=== PATIENT | female | born 1970 | race African-American/Black ===

== ENCOUNTER 2017-07-08 10:01 | Emergency (ER) | payer OTHER ==
[~2017-07-08] VITALS: Ht 162.6 cm; Wt 93.6 kg
[~2017-07-08 10:01] MED LIST: ALPRAZOLAM0.5 MG PO; ARIPIPRAZOLE10 MG PO; CYMBALTA60 MG; DULOXETINE HCL60 MG PO; FIORICET,ESG1 TABLET PO; FLEXERIL10 MG PO; MOTRIN800 MG PO; NAPROSYN500 MG PO; NAPROXEN500 M1 PO; NEURONTIN300 MG PO; NOHOMEMEDS; NORCO 5/3251 TABLET PO; PREDNISONE10 MG PO; SEROQUEL100 MG PO; SERTRALINE HCL100 MG PO; TEGRETOL200 MG PO; TOPAMAX50 MG PO; VIBRAMYCIN100 M2 PO; ZOLPIDEM TARTRA10 MG; ZOLPIDEM TARTRA10 MG PO; [UNRECOGNIZED DRUG - OTHER]
[2017-07-08] MEDS ORDERED: MOTRIN800 MG PO (11:31)
[2017-07-08] MEDS ORDERED: TESSALON PERLE100 MG PO (11:31)
[2017-07-08] MEDS ORDERED: FLEXERIL10 MG PO (11:31)
[2017-07-08 12:12] VITALS: BP 140/88
== END 2017-07-08 12:17 | disposition home or self-care (01) ==
LOC: EME 10:01
DX: M54.31 Sciatica, right side (principal); J06.9 Acute upper respiratory infection, unspecified; F17.200 Nicotine dependence, unspecified, uncomplicated
CPT/HCPCS: 71020; 99281; 99284; J1885